=== PATIENT | male | born 1995 | race Caucasian/White ===

== ENCOUNTER 2019-08-24 00:51 | Emergency (ER) | payer MEDICAID, OTHER, SELFPAY ==
[2019-08-24 00:53] VITALS: BP 133/83; PULSE 67; RESP 18; TEMP 36.3; BMI 20.2
[2019-08-24 00:58] VITALS: PULSE 71; RESP 16; O2SAT 98
--- NOTE | 2019-08-24 01:13 | RAD_ITS ---
STUDY: X-RAY RIGHT FOOT, FIFTH TOE REASON FOR EXAM: Male, 24 years old. Patient ran into a door. Pain in the fifth toe. TECHNIQUE: 3 view(s) of the toe were obtained. COMPARISON: None. FINDINGS: Normal visualized metatarsus. Normal metatarsophalangeal (M.T.P) joint. Normal interphalangeal joints. Normal phalanges and interphalangeal joints. The soft tissue structures are unremarkable. RAD/Toe(s) Min 2 Views IMPRESSION: Normal x-ray of the toe. Electronically Signed: Marcila Whiteside MD at 2:13 EDT , Service support ,
--- NOTE | 2019-08-24 01:53 | ED.VIS.GEN ---
History of Present Illness Chief Complaint: Lower Extremity Injury Informant: Patient Narrative: Stated he accidentally kicked the door when he was chasing his dog just prior to arrival. No home treatment. Came in for further evaluation as he is having pain in his right little toe. Current severity is mild to moderate. Worse with walking on it. No previous injury Past Medical History - Allergies and Home Meds Allergies/Adverse Reactions: Allergies No Known Allergies Allergy (Verified 08/24/19 00:59) Primary Care Physician: Care Physician,No Primary [Primary Care Provider] - Prior records reviewed: Yes Past Medical History: - - Reviewed Surgical History: - - Reviewed Smoking Status: Never smoker Alcohol: None Drugs: None Review of Systems General: Denies: Chills, Fever, Sweats Eyes: Denies: Visual changes - bilaterally, Diplopia ENT: Denies: Rhinorrhea, Sore throat Cardiovascular: Denies: Chest pain, Palpitations Respiratory: Denies: Dyspnea, Cough, Dyspnea on exertion Gastrointestinal: Denies: Abdominal pain, Nausea, Vomiting, Diarrhea, Melena, Hematochezia Genitourinary: Denies: Dysuria, Hematuria, Frequency Musculoskeletal: Reports: Extremity Pain. Denies: Back pain Skin: Denies: Rash, Wounds Neurological: Denies: Headache, Weakness, Numbness Physical Exam Vital Signs/Narrative: Vital Signs Temp Pulse Resp BP Pulse Ox 08/24/19 00:58 71 16 98 08/24/19 00:53 97.4 F L 67 18 133/83 H General: Well nourished, Well developed, No Acute Distress Head: Normocephalic, Atraumatic Eyes: Perrl, EOMI ENT: Moist mucous membranes, No rhinorrhea Neck: Supple, Nontender Cardiovascular: Regular rate, Regular rhythm, No murmurs Respiratory: No distress, CTA bilaterally, Chest nontender Abdomen: Soft, Nontender, Nondistended, Normal bowel sounds Back: Nontender, Normal Inspection Extremities: No edema, Tenderness - Tenderness in the little toe with mild swelling. Negative for: Nontender Skin: Normal color, No rash Neurological: Alert, Oriented x3, Cranial nerves II-XII grossly intact, Normal Strength, Normal Sensation Psychological: Normal affect, Normal Mood Diagnostic/Tx/Re-eval - Medical Decision Making X-ray negative for fracture. At this time I feel the patient just of his right toe. We will follow-up as an outpatient. Gilberto tape postop shoe given ED Disposition - Plan for ED Patient: Disposition: Home or Assisted Living Diagnosis: Toe sprain Instructions: Sprain Toe Referrals: Care Physician,No Primary [Primary Care Provider] -
[2019-08-24 02:08] VITALS: RESP 16; O2SAT 100
== END 2019-08-24 02:08 | disposition home or self-care (01) ==
PROVIDERS: Emergency Provider Emergency Medicine
DX: S93.504A Unspecified sprain of right lesser toe(s), initial encounter (principal); W22.09XA Striking against other stationary object, initial encounter; Y93.02 Activity, running; Y92.9 Unspecified place or not applicable; Y99.9 Unspecified external cause status
CPT/HCPCS: 73660; 99282